=== PATIENT | male | born 1950 | race Caucasian/White ===

== ENCOUNTER 2017-06-21 21:00 | Emergency (ER) | payer MEDICARE, OTHER ==
[~2017-06-21] VITALS: Ht 160 cm; Wt 79.4 kg
--- NOTE | 2017-06-21 21:10 | NUR ---
PT TO ER BED 14. PT BIBA#860 FROM HOME, PT C/O ABD PAIN X 3 DAYS, PT DENIES N/V/D. PT PLACED IN GOWN AND ON DISTRICT MANAGER POSTAL SERVICE. VSS/RESP EVEN UNLABORED/NAD NOTED/SKIN WARM AND DRY/AFEBRILE/AOX4. AWAITING MD MERINO.
--- NOTE | 2017-06-21 21:25 | NUR ---
PT TO CT VIA WC.
--- NOTE | 2017-06-21 21:25 | NUR ---
URINE SPECIMEN OBTAINED AND SENT TO THE LAB.
--- NOTE | 2017-06-21 21:30 | NUR ---
PT BACK FROM CT.
--- NOTE | 2017-06-21 21:33 | NUR ---
LAB AT BEDSIDE FOR DRAW.
[2017-06-21 21:44] LABS: BASOPHILS # (AUTO) 0.3 /CMM (0.0-0.2); BASOPHILS % (AUTO) 2.7 % (0.0-2.0); EOSINOPHILS % (AUTO) 1.1 % (0.0-6.0); HEMATOCRIT 44 % (39-51); LYMPHOCYTES # (AUTO) 2.1 /CMM (0.8-4.8); LYMPHOCYTES % (AUTO) 21.2 % (20.0-44.0); MEAN CORPUSCULAR HGB CONC 32 g/dl (31.0-36.0); MEAN CORPUSCULAR VOLUME 78 fL (80-96); MONOCYTES # (AUTO) 0.5 /CMM (0.1-1.30); MONOCYTES % (AUTO) 5.1 % (2.0-12.0); NEUTROPHILS # (AUTO) 7.1 /CMM (1.8-8.9); NEUTROPHILS % (AUTO) 69.9 % (43.0-81.0); PLATELET COUNT (AUTO) 411 /CMM (150-450); RDW COEFFICIENT OF VARIATION 15.5 (11.5-15.0); RED BLOOD CELL COUNT(AUTO) 5.62 MIL/uL (4.5-6.0); WHITE BLOOD COUNT (AUTO) 10.1 K/uL (4.3-11.0)
[2017-06-21 21:54] LABS: CALCIUM, SERUM 9.6 mg/dL (8.5-10.1); CREATININE 1.2 mg/dL (0.6-1.3); POTASSIUM 4.1 mmol/L (3.5-5.1)
[2017-06-21 22:01] LABS: ALBUMIN 4.1 g/dL (3.4-5.0); BILIRUBIN,DIRECT 0.1 mg/dL (0.0-0.2); BILIRUBIN,TOTAL 0.5 mg/dL (0.2-1.0)
[2017-06-21 22:04] LABS: APPEARANCE,URINE CLEAR (CLEAR); BILIRUBIN,URINE NEGATIVE (NEGATIVE); BLOOD, URINE NEGATIVE Ery/uL (NEGATIVE); COLOR,URINE YELLOW (YELLOW); KETONES,URINE NEGATIVE (NEGATIVE); LEUKOCYTE ESTERASE ,URINE NEGATIVE (NEGATIVE); NITRITE, URINE NEGATIVE (NEGATIVE); PH,URINE 5.5 (5.0-8.0); PROTEIN,URINE NEGATIVE (NEGATIVE); UGLUCOSE NEGATIVE (NEGATIVE); UROBILINOGEN,URINE 0.2 EU/dL (0.2)
[2017-06-21] MEDS ORDERED: HYDROCODONE/APAP 5/325MG 1 EACH TABLET PO ONE (23:00)
[2017-06-21] MEDS ORDERED: HYDROCODONE/APAP 5/325MG 1 EACH TABLET ONE (23:04)
[2017-06-21 23:37] VITALS: BP 147/86
--- NOTE | 2017-06-21 23:37 | NUR ---
Patient discharged to home in stable condition. Written and verbal after care instructions given. Patient verbalizes understanding of instruction. PT TOLD TO NOT DRIVE, PT VERBALIZED UNDERSTANDNIGN AND PT STATES SHE WILL BE DRIVING HIM HOME.
== END 2017-06-21 23:39 | disposition home or self-care (01) ==
LOC: ER 21:03
DX: K45.8 Other specified abdominal hernia without obstruction or gangrene (principal); R10.84 Generalized abdominal pain
CPT/HCPCS: 36415; 80048-TC; 80076-TC; 81000-TC; 83690-TC; 85025-TC; A4606; Z7610

== ENCOUNTER 2017-07-22 19:37 | Inpatient (IN) | payer MEDICARE, OTHER ==
[~2017-07-22] VITALS: Ht 160 cm; Wt 77.6 kg
--- NOTE | 2017-07-22 19:40 | NUR ---
"ABD PAIN X5 DAYS; NOT URINATED IN 2 DAYS AND NO BOWEL MOVEMENT IN 4 DAYS" "HAD HERNIA SURGERY 06/22/17. NAD NOTED, VSS, RESP EVEN AND UNLABORED, PT WAS PUT ON MONITOR, WAITING FOR MD EVAL.
[2017-07-22 20:34] LABS: BASOPHILS # (AUTO) 0.2 /CMM (0.0-0.2); BASOPHILS % (AUTO) 1.6 % (0.0-2.0); EOSINOPHILS % (AUTO) 0.9 % (0.0-6.0); HEMATOCRIT 37 % (39-51); HEMOGLOBIN 12.4 g/dL (13.5-17.5); LYMPHOCYTES # (AUTO) 1.5 /CMM (0.8-4.8); LYMPHOCYTES % (AUTO) 13.6 % (20.0-44.0); MEAN CORPUSCULAR HGB CONC 33 g/dl (31.0-36.0); MEAN CORPUSCULAR VOLUME 75 fL (80-96); MONOCYTES # (AUTO) 0.5 /CMM (0.1-1.30); MONOCYTES % (AUTO) 4.6 % (2.0-12.0); NEUTROPHILS % (AUTO) 79.3 % (43.0-81.0); PLATELET COUNT (AUTO) 481 /CMM (150-450); RDW COEFFICIENT OF VARIATION 16.6 (11.5-15.0); RED BLOOD CELL COUNT(AUTO) 4.96 MIL/uL (4.5-6.0); WHITE BLOOD COUNT (AUTO) 11.3 K/uL (4.3-11.0)
--- NOTE | 2017-07-22 20:45 | NUR ---
pt to xray
[2017-07-22 20:58] LABS: CALCIUM, SERUM 9.6 mg/dL (8.5-10.1); CREATININE 1.9 mg/dL (0.6-1.3); POTASSIUM 3.8 mmol/L (3.5-5.1)
[2017-07-22 21:04] LABS: ALBUMIN 3.5 g/dL (3.4-5.0); BILIRUBIN,DIRECT 0.1 mg/dL (0.0-0.2); BILIRUBIN,TOTAL 0.3 mg/dL (0.2-1.0); TOTAL PROTEIN, SERUM 8.1 g/dL (6.4-8.2)
[2017-07-22] MEDS ORDERED: NA PHOS,M-B/NA PHOS,DI-BA 1 EA ENEMA RC ONE ×2 (23:14→23:30)
[2017-07-22] MEDS ORDERED: MAGNESIUM HYDROXIDE 30 ML UDC ONE (23:14)
[2017-07-22] MEDS ORDERED: MAGNESIUM CITRATE 296 ML BOTTLE ONE (23:14)
[2017-07-22] MEDS ORDERED: MAGNESIUM HYDROXIDE 30 ML UDC PO ONE (23:30)
[2017-07-22] MEDS ORDERED: MAGNESIUM CITRATE 296 ML BOTTLE PO ONE (23:30)
--- NOTE | 2017-07-22 23:30 | NUR ---
pt wants to hold off for farhan spangler, aware.
[2017-07-22] MEDS ORDERED: HYDROMORPHONE INJ 0.5 MG/0.5 ML SYRINGE ONE (23:38)
[2017-07-22] MEDS ORDERED: ONDANSETRON 4 MG TAB.RAPDIS ONE (23:38)
--- NOTE | 2017-07-22 23:58 | NUR ---
report given to charla cox rn
[2017-07-23] MEDS ORDERED: HYDROMORPHONE 1 MG/1 ML DISP.SYRIN IM ONE
[2017-07-23] MEDS ORDERED: ONDANSETRON 4 MG TAB.RAPDIS SL ONE
--- NOTE | 2017-07-23 04:21 | NUR ---
PT ASSIGNED TO MS 200
[2017-07-23] MEDS ORDERED: IV NS 0.9% 1,000 ML IV PRN (04:26)
[2017-07-23] MEDS ORDERED: MAGNESIUM HYDROXIDE 30 ML UDC PO PRN (04:30)
[2017-07-23] MEDS ORDERED: ACETAMINOPHEN 325 MG TABLET PO PRN (04:30)
[2017-07-23] MEDS ORDERED: ONDANSETRON HCL/PF 4 MG/2 ML VIAL IVP PRN (04:30)
[2017-07-23] MEDS ORDERED: MAG HYDROX/AL HYDROX/SIMETH 30 ML UDC PO PRN (04:30)
[2017-07-23] MEDS ORDERED: Z GUARD REMEDY 2 OZ OINT TP PRN (04:30)
[2017-07-23] MEDS ORDERED: ZOLPIDEM TARTRATE 5 MG TABLET PO PRN (04:30)
--- NOTE | 2017-07-23 05:03 | NUR ---
REPORT GIVEN TO ROOSEVELT GUERRIER FOR CONTINUATION OF CARE.
--- NOTE | 2017-07-23 05:06 | NUR ---
PT TRANSFERED TO [facility] [place] VIA WHEELCHAIR.
[2017-07-23 05:30] VITALS: BP 106/68
--- NOTE | 2017-07-23 06:00 | NUR ---
MS RN NOTE: RECEIVED PATIENT FROM ER, NO ACUTE DISTRESS NOTED. BREATHING EVEN AND UNLABORED, NO SOB NOTED. IV TO LAC IN PLACE, INFUSING NS AT 75 ML/HR. ORIENTED PATIENT TO ROOM AND USE OF CALL LIGHT. BED LOCKED AND IN LOWEST POSITION, CALL LIGHT IN REACH. WILL ENDORSE TO DAY NURSE TO CONTINUE WITH PLAN OF CARE.
[2017-07-23] MEDS: PANTOPRAZOLE 40 MG TABLET.DR PO SCH (07:12)
--- NOTE | 2017-07-23 07:31 | NUR ---
M/S RN - Assessment Patient in bed resting comfortably, A/O x 4, tolerating room air, denies abdominal discomfort at this time, still no bowel movement post MOM and magnesium citrate administration in ER. IVF NS at 75 ml/hr infusing well on the LAC with no infiltration. Patient ambulatory with steady gait. All needs attended and met. Will continue to monitor closely.
[2017-07-23 08:00] VITALS: BP 99/61
[2017-07-23] MEDS: DOCUSATE SODIUM 100 MG CAPSULE PO SCH ×2 (08:19→16:19)
[2017-07-23] MEDS: MORPHINE SULFATE INJ 4 MG/ML DISP.SYRIN IV PRN ×2 (09:26→13:37)
[2017-07-23 16:00] VITALS: BP 111/70
--- NOTE | 2017-07-23 16:00 | NUR ---
M/S RN - Notes Patient had a large bowel movement post tap water enema and manual disimpaction, he verbalized relief from abdominal discomfort. Abdomen soft, non-tender, +BS noted. Patient denies abdominal pain at this time.
--- NOTE | 2017-07-23 17:10 | NUR ---
M/S RN - Notes KALYAN Albrecht made aware that LAC peripheral IV was occluded and patient refused IVF and IV line to be re-inserted. Patient stated "I don't need it anymore, I've drinking lots of fluids." Per Ambrocio, adela not to insert peripheral IV, dc IVF and IV meds, advance diet as tolerated. Orders noted and carried out.
--- NOTE | 2017-07-23 18:15 | NUR ---
M/S RN - Notes Patient resting comfortably, tolerated full liquid diet, denies n/v, no c/o abdominal discomfort at this time, no apparent distress seen. Will continue with current medical management.
--- NOTE | 2017-07-23 19:30 | NUR ---
MS RN NOTES RECEIVED AMBULATING INSIDE HIS ROOM,VISITOR AT BEDSIDE,NO IV ACCESS,MD AWARE.DENIES PAIN.CALL LIGHT IN REACH,NEEDS ANTICIPATED.
[2017-07-23 20:00] VITALS: BP 134/84
[2017-07-23 22:00] VITALS: BP 134/84
[2017-07-23] MEDS: HYDROCODONE/APAP 5/325MG 1 EACH TABLET PO PRN (23:02)
--- NOTE | 2017-07-23 23:05 | NUR ---
MS RN NOTES C/O ABDOMINAL PAIN 6/10 ON PAIN SCALE,NORCO 5/325MG,1TAB PO GIVEN PER PATIENT REQUEST.
[2017-07-24] MEDS: HYDROCODONE/APAP 5/325MG 1 EACH TABLET PO PRN (02:59)
--- NOTE | 2017-07-24 02:59 | NUR ---
MS RN NOTES AMBULATE ON THE HALLWAY,C/O ABDOMINAL PAIN,NORCO 5/325MG.1 TAB PO GIVEN PER PATIENT REQUEST
--- NOTE | 2017-07-24 04:00 | NUR ---
MS RN NOTES SLEEPING AT THIS TIME
--- NOTE | 2017-07-24 06:01 | NUR ---
MS RN NOTES AWAKE,AMBULATES,PAIN TOLERABLE.NO IV ACCESS.TWICE SOFT BM,NON DIARRHEA.POSSIBLE D/C HOME TODAY WITH PRIVATE TRANSPORTATION.WILL ENDORSE TO DAY NURSE FOR DADA.
[2017-07-24 06:16] LABS: BASOPHILS % (AUTO) 0.5 % (0.0-2.0); EOSINOPHILS % (AUTO) 2.9 % (0.0-6.0); HEMATOCRIT 33 % (39-51); HEMOGLOBIN 11.1 g/dL (13.5-17.5); LYMPHOCYTES # (AUTO) 1.6 /CMM (0.8-4.8); LYMPHOCYTES % (AUTO) 18.1 % (20.0-44.0); MEAN CORPUSCULAR HGB CONC 33 g/dl (31.0-36.0); MEAN CORPUSCULAR VOLUME 76 fL (80-96); MONOCYTES # (AUTO) 0.4 /CMM (0.1-1.30); MONOCYTES % (AUTO) 4.8 % (2.0-12.0); NEUTROPHILS # (AUTO) 6.7 /CMM (1.8-8.9); NEUTROPHILS % (AUTO) 73.7 % (43.0-81.0); PLATELET COUNT (AUTO) 397 /CMM (150-450); RDW COEFFICIENT OF VARIATION 17.8 (11.5-15.0); RED BLOOD CELL COUNT(AUTO) 4.38 MIL/uL (4.5-6.0); WHITE BLOOD COUNT (AUTO) 9.1 K/uL (4.3-11.0)
[2017-07-24 06:44] LABS: CALCIUM, SERUM 9.3 mg/dL (8.5-10.1); CREATININE 1.1 mg/dL (0.6-1.3); MAGNESIUM 2.6 mg/dL (1.8-2.4); PHOSPHORUS 3.8 mg/dL (2.5-4.9); POTASSIUM 3.9 mmol/L (3.5-5.1)
--- NOTE | 2017-07-24 07:30 | NUR ---
PT RECEIVED RESTING COMFORTABLY IN BED. NO S/S OR C/O PAIN OR DISTRESS NOTED. SIDE RAILS UP X2, CALL LIGHT LEFT WITHIN REACH. WILL CONTINUE PLAN OF CARE.
[2017-07-24 07:56] VITALS: BP 125/68
[2017-07-24] MEDS: PANTOPRAZOLE 40 MG TABLET.DR PO SCH (07:57)
[2017-07-24] MEDS: DOCUSATE SODIUM 100 MG CAPSULE PO SCH (08:00)
--- NOTE | 2017-07-24 12:30 | NUR ---
DISCHARGE INSTRUCTIONS GIVEN ORDERED. ENCOURAGED TO FOLLOW UP WITH PMD INSTRUCTED. ALL QUESTIONS AND CONCERNS ADDRESSED. PATIENT VERBALIZED UNDERSTANDING. MEDICATION RECONCILIATION FORM COMPLETED, COPY GIVEN TO PATIENT. PATIENT TAKEN TO VEHICLE WITH ALL PERSONAL BELONGINGS, ACCOMPANIED BY STAFF. NO DISTRESS NOTED AT TIME OF DEPARTURE.
== END 2017-07-24 12:30 | disposition home or self-care (01) | DRG 391 ==
LOC: ER 19:39 → MEDSG2 07-23 04:25
PROVIDERS: ADMIT Internal Medicine; ATTEND Internal Medicine
DX: K59.00 Constipation, unspecified (principal); N17.0 Acute kidney failure with tubular necrosis; D72.829 Elevated white blood cell count, unspecified; D50.9 Iron deficiency anemia, unspecified; D63.8 Anemia in other chronic diseases classified elsewhere; Z95.1 Presence of aortocoronary bypass graft; I25.2 Old myocardial infarction
CPT/HCPCS: 36415; 74021; 80048-TC; 80076-TC; 83690-TC; 83735-TC; 84100-TC; 85025-TC; 87081-TC; A4606; J2270; J7030; Q0162; Z7610

== ENCOUNTER 2017-07-29 12:44 | Outpatient (CLI) | payer MEDICARE, OTHER ==
[2017-07-29] MEDS ORDERED: ZOLP5TAB8 PO (12:52)
[2017-07-29] MEDS ORDERED: METO25TA6 PO (12:52)
[2017-07-29] MEDS ORDERED: ACET-868 PO (12:52)
[2017-07-29] MEDS ORDERED: DOCU-141 PO (12:52)
[2017-07-29] MEDS ORDERED: NAPR-1192 PO (12:52)
[2017-07-29 12:54] VITALS: BP 104/74
== END 2017-07-29 23:59 | disposition home or self-care (01) ==
LOC: MSC 12:44
PROVIDERS: ATTEND Internal Medicine
DX: Z09 Encounter for follow-up examination after completed treatment for conditions other than malignant neoplasm (principal); D50.9 Iron deficiency anemia, unspecified; I25.2 Old myocardial infarction; F17.200 Nicotine dependence, unspecified, uncomplicated; Z95.1 Presence of aortocoronary bypass graft; Z98.890 Other specified postprocedural states

== ENCOUNTER 2018-11-01 12:14 | Inpatient (IN) | payer MEDICARE, OTHER ==
[~2018-11-01] VITALS: Ht 167.6 cm; Wt 83.7 kg
[~2018-11-01 12:14] MED LIST: ACET-868 PO; DOCU-141 PO; METO25TA6 PO; NAPR-1192 PO; ZOLP5TAB8 PO
--- NOTE | 2018-11-01 12:30 | NUR ---
AAOX3, came to ER c/o RLE pain, redness and swelling x 5 days. Pedal pulses +1. RR is even and unlabored with nad noted. skin is warm and dry. Awaiting md for eval. [facility] WNL.
--- NOTE | 2018-11-01 12:54 | NUR ---
Blood drawn sent to the lab.
[2018-11-01] MEDS ORDERED: PIPERACILLIN /TAZOBACTAM 3.375 G in IV D5W 50 ML IV ONE (13:00)
[2018-11-01 13:09] LABS: BASOPHILS # (AUTO) 0.1 /CMM (0.0-0.2); BASOPHILS % (AUTO) 0.8 % (0.0-2.0); EOSINOPHILS % (AUTO) 1.2 % (0.0-6.0); HEMATOCRIT 44 % (39-51); HEMOGLOBIN 14.2 g/dL (13.5-17.5); LYMPHOCYTES # (AUTO) 2.1 /CMM (0.8-4.8); LYMPHOCYTES % (AUTO) 29.3 % (20.0-44.0); MEAN CORPUSCULAR HGB CONC 32 g/dl (31.0-36.0); MEAN CORPUSCULAR VOLUME 81 fL (80-96); MONOCYTES # (AUTO) 0.6 /CMM (0.1-1.30); MONOCYTES % (AUTO) 7.8 % (2.0-12.0); NEUTROPHILS # (AUTO) 4.4 /CMM (1.8-8.9); NEUTROPHILS % (AUTO) 60.9 % (43.0-81.0); PLATELET COUNT (AUTO) 287 /CMM (150-450); RED BLOOD CELL COUNT(AUTO) 5.44 MIL/uL (4.5-6.0); WHITE BLOOD COUNT (AUTO) 7.3 K/uL (4.3-11.0)
--- NOTE | 2018-11-01 13:09 | NUR ---
CALLED HOUSE SUP FOR MS BED
--- NOTE | 2018-11-01 13:19 | NUR ---
MS BED 323-2
[2018-11-01 13:21] LABS: CALCIUM, SERUM 9.6 mg/dL (8.5-10.1); CREATININE 1.2 mg/dL (0.6-1.3); POTASSIUM 4.2 mmol/L (3.5-5.1)
[2018-11-01 13:25] LABS: ALBUMIN 3.5 g/dL (3.4-5.0); BILIRUBIN,DIRECT 0.1 mg/dL (0.0-0.2); BILIRUBIN,TOTAL 0.6 mg/dL (0.2-1.0); TOTAL PROTEIN, SERUM 7.4 g/dL (6.4-8.2)
[2018-11-01] MEDS: VANCOMYCIN 1 GM in IV D5W 250 ML IV ONE (13:30)
--- NOTE | 2018-11-01 14:19 | NUR ---
PATIENT AWAKE ALERT NON DISTRESS NOTED rT LEG REDNESS ,DENIES PAIN ,ELEVATED WITH PILLOW CONTINUE TO MONITOR
[2018-11-01] MEDS ORDERED: MORPHINE SULFATE INJ 2 MG/ML DISP.SYRIN IV PRN (14:30)
[2018-11-01] MEDS ORDERED: MAG HYDROX/AL HYDROX/SIMETH 30 ML UDC PO PRN (14:30)
[2018-11-01] MEDS ORDERED: ZOLPIDEM TARTRATE 5 MG TABLET PO PRN (14:30)
[2018-11-01] MEDS ORDERED: ACETAMINOPHEN 325 MG TABLET PO PRN (14:30)
[2018-11-01] MEDS ORDERED: ONDANSETRON HCL/PF 4 MG/2 ML VIAL IVP PRN (14:30)
[2018-11-01] MEDS ORDERED: HYDROCODONE/APAP 5/325MG 1 EACH TABLET PO PRN (14:30)
[2018-11-01] MEDS ORDERED: Z GUARD REMEDY 2 OZ OINT TP PRN (14:30)
[2018-11-01] MEDS ORDERED: FEE PK DOSING 1 MIN EA MC ONE (14:37)
--- NOTE | 2018-11-01 15:18 | NUR ---
PATIENT HAS MEL HESS NOTED NO REDNESS ,NO EDEMA ,NO PAIN REPORT GIVEN TO DENIS Camara
--- NOTE | 2018-11-01 15:24 | NUR ---
PATIENT HAS 2 + PITTING EDEMA TO HIS RT FOOT AND ANKLE PROVIDER AWARE ELEVATED WITH PILLOW CONTINUE TO MONITOR
[2018-11-01 15:50] VITALS: BP 123/80
--- NOTE | 2018-11-01 16:00 | NUR ---
FIRE MEDIC NOTES PATIENT ADMITTED FROM ER A/O X4, MED/SURG ON Dx OF RIGHT LOWER LEG CELLULITIS. PATIENT HAS NO ACUTE RESPIRATORY DISTRESS. LUNGS ARE CLEAR DURING AUSCULTATION, UNLABORED. V/S TAKEN BP -123/80, P-57, R-18, O2-99 ROOM AIR, T-97.5. SKIN ASSESSMENT DONE RIGHT LOWER LEG HAS REDNESS, SNELLEN, PAINFUL WHEN TOUCHING, AND IN THE MIDDLE HAS A BLOCK DISCOLORATION. PICTURE TAKEN. ELEVATED RIGHT LEG USING PILLOWS. PATIENT WAS COMPLAINING OF PAIN 3/10 BUT REFUSED PAIN MEDICATION AT THIS TIME, APPLIED ICE APPLICATOR ON GORDY OF THE RIGHT LEG. PATIENT USING CANE FOR SAFETY PRECAUTION, USING BATHROOM. IV ACCESS ON LEFT AC AREA INTACT, CALL LIGHT WITHIN TO REACH, CONTINUED MONITORING.
[2018-11-01] MEDS: LACTOBACILLUS RHAMNOSUS GG 1 EACH CAP.SPRINK PO SCH (16:23)
[2018-11-01] MEDS: PIPERACILLIN /TAZOBACTAM 3.375 G in IV D5W 50 ML IV SCH ×2 (17:31→23:27)
--- NOTE | 2018-11-01 17:50 | NUR ---
RN NOTES PATIENT STEP DOWN FOR SMOKE WITH THE BALANCE SHEET ANALYST USING WHEELCHAIR. CONTINUED MONITORING.
--- NOTE | 2018-11-01 18:10 | NUR ---
RN NOTES PATIENT BACK, EATING AT THIS TIME . STARTED ZOSYN 100 ML/HR ON LEFT AC AREA INTACT, ADMINISTERED SCHEDULED MEDICATION, PATIENT REFUSED PAIN AT THIS TIME, KEEP RIGHT LEG ELEVATED, CALL LIGHT WITHIN TO REACH. NEXT TO THE BED, ENDORSED ONCOMING NURSE FOLLOW PLAN OF CARE.
[2018-11-01 20:00] VITALS: BP 116/69
[2018-11-02] MEDS: VANCOMYCIN 1 GM in IV D5W 250 ML IV SCH ×2 (00:19→13:37)
[2018-11-02] MEDS: PIPERACILLIN /TAZOBACTAM 3.375 G in IV D5W 50 ML IV SCH ×4 (05:12→23:01)
[2018-11-02 06:26] LABS: BASOPHILS % (AUTO) 0.4 % (0.0-2.0); EOSINOPHILS % (AUTO) 2.4 % (0.0-6.0); HEMATOCRIT 41 % (39-51); HEMOGLOBIN 13.5 g/dL (13.5-17.5); LYMPHOCYTES # (AUTO) 1.1 /CMM (0.8-4.8); MEAN CORPUSCULAR HGB CONC 33 g/dl (31.0-36.0); MEAN CORPUSCULAR VOLUME 80 fL (80-96); MONOCYTES # (AUTO) 0.4 /CMM (0.1-1.30); MONOCYTES % (AUTO) 7.6 % (2.0-12.0); NEUTROPHILS # (AUTO) 4.2 /CMM (1.8-8.9); NEUTROPHILS % (AUTO) 70.6 % (43.0-81.0); PLATELET COUNT (AUTO) 255 /CMM (150-450); RED BLOOD CELL COUNT(AUTO) 5.18 MIL/uL (4.5-6.0); WHITE BLOOD COUNT (AUTO) 5.9 K/uL (4.3-11.0)
[2018-11-02 06:47] LABS: CALCIUM, SERUM 8.8 mg/dL (8.5-10.1); CREATININE 1.1 mg/dL (0.6-1.3); POTASSIUM 3.9 mmol/L (3.5-5.1)
[2018-11-02 07:51] VITALS: BP 152/91
[2018-11-02 08:00] VITALS: BP 124/73
--- NOTE | 2018-11-02 08:00 | NUR ---
RN NOTES RN NOTES RECEIVED PATIENT IN THE BED SLEEPING, NO ACUTE RESPIRATORY DISTRESS, V/S STABLE PATIENT AROUSE WHEN CALLED NAME OR TOUCHED. IV ACCESS ON LEFT AC AREA INTACT. PATIENT HAS A REDNESS AND SNELLEN RIGHT LEG, KEEPED ELEVATED USING PILLOW. CALL LIGHT WITHIN TO REACH, CONTINUED MONITORING.
--- NOTE | 2018-11-02 09:00 | NUR ---
RN NOTES PATIENT OUT TO SMOKE WITH SUPERVISION OF CLOTH EXAMINER HAND.
--- NOTE | 2018-11-02 09:20 | NUR ---
RN NOTES PATIENT BACK FROM SMOKING, ADMINISTERED SCHEDULED MEDICATION. ENCOURAGED TO KEEP ELEVATED RIGHT LEG.
[2018-11-02] MEDS: LACTOBACILLUS RHAMNOSUS GG 1 EACH CAP.SPRINK PO SCH ×2 (09:32→16:41)
--- NOTE | 2018-11-02 13:04 | NUR ---
RN NOTES PATIENT IN THE BED INFUSING ZOSYN 100 ML/HR ON LEFT AC INTACT, PATIENT REFUSED PAIN, FAMILY NEXT TO THE BED. CONTINUED MONITORING.
[2018-11-02 16:06] VITALS: BP 124/73
--- NOTE | 2018-11-02 18:30 | NUR ---
RN NOTES PATIENT STABLE , V/S WNL, INFUSING ZOSYN 100 ML/HR ON RIGHT FA INTACT. PATIENT REFUSED PAIN. ENCOURAGED TO KEEP RIGHT LEG ELEVATED, CALL LIGHT WITHIN TO REACH. PATIENT USING CANE. NEXT TO THE BED. ENDORSED ONCOMING NURSE FOLLOW PLAN OF CARE.
--- NOTE | 2018-11-02 19:25 | NUR ---
MS RN OPENING NOTES: RECEIVED PT ON ROOM AIR WITH AT BEDSIDE. PT IS SITTING UP IN CHAIR AT THIS TIME. PT HAS IV ON R FOREARM #22G AND IS PATENT AND INTACT. CURRENTLY H/L. PT IS A/OX4. NOTED SOME SWELLING AND REDNESS ON R LEG. PT ANTICIPATING TO GO HOME BUT EXPLAINED TO HIM THAT HE HAS NOT YET BEEN SEEN BY WOUND CONSULT. PT UNDERSTOOD. BED KEPT IN LOW, LOCKED POSITION, AND SIDE RAILS X 2UP. WILL CONTINUE TO MONITOR PT.
[2018-11-02 20:00] VITALS: BP_SYST 121; BP_SYST 130; BP_DIAS 76; BP_DIAS 78
--- NOTE | 2018-11-02 20:06 | NUR ---
MS RN NOTES: PT WENT DOWN FOR SMOKE BREAK WITH MEAGAN BALBUENA.
--- NOTE | 2018-11-02 20:24 | NUR ---
MS RN NOTES: PT BACK FROM SMOKE BREAK.
[2018-11-03] MEDS: VANCOMYCIN 1 GM in IV D5W 250 ML IV SCH (00:16)
[2018-11-03] MEDS: PIPERACILLIN /TAZOBACTAM 3.375 G in IV D5W 50 ML IV SCH (05:44)
--- NOTE | 2018-11-03 06:21 | NUR ---
MS RN CLOSING NOTES: ALL NEEDS WERE ATTENDED AND ANTICIPATED FOR. PT KEPT CLEAN, DRY, AND COMFORTABLE. NO SOB NOTED. NO S/S OF DISTRESS. PT AWAKE AND SITTING UP IN BED ON HIS PHONE AT THIS TIME. IV REMANS INTACT ON R FOREARM #22G AND IS BEING INFUSED WITH ZOSYN AT 100ML/HR AT THIS TIME. BED KEPT IN LOW, LOCKED POSITION, AND SIDE RAILS X 2UP. WILL ENDORSE TO AM NURSE FOR DADA.
[2018-11-03 07:27] LABS: CALCIUM, SERUM 8.9 mg/dL (8.5-10.1); CREATININE 1.3 mg/dL (0.6-1.3); POTASSIUM 4.3 mmol/L (3.5-5.1)
[2018-11-03 08:00] VITALS: BP 113/81
--- NOTE | 2018-11-03 08:00 | NUR ---
RN NOTES PATIENT IN THE ROOM SITTING IN THE CHAIR, REFUSED PAIN, RIGHT WOUND SWELLING GET LESS, PATIENT REFUSED PAIN. SEEN PATIENT BY KALYAN DAVIDSON, PLAN FOR DISCHARGE TODAY AFTERNOON AFTER WOUND CONSULTATION WITH PO ANTIBIOTIC. CALL LIGHT WITHIN TO REACH. CONTINUED MONITORING.
--- NOTE | 2018-11-03 08:43 | NUR ---
RN NOTES PATIENT OUT OF UNIT FOR SMOKE WITH SUPERVISION OF ELECTRONIC NEWS GATHERING EDITOR.
[2018-11-03] MEDS: LACTOBACILLUS RHAMNOSUS GG 1 EACH CAP.SPRINK PO SCH (09:09)
--- NOTE | 2018-11-03 09:10 | NUR ---
RN NOTES PATIENT BACK FROM SMOKING, ADMINISTERED SCHEDULED MEDICATION, SEEN WOUND NURSE.
--- NOTE | 2018-11-03 09:18 | NUR ---
WOUND CARE CONSULT: PT PRESENTS WITH RAISED AREA TO RT ANTERIOR LOWER LEG WITH ESCHAR/WOUND, PRESENT ON ADMISSION. RECOMMEND DPM CONSULT. DR LUCAS AWARE OF CONSULT REQUEST. PT IS AMBULATORY AND CONTINENT. WILL SEE PRN. Addendum: 11/03/18 at 0919 by RYAN RATLIFF WNDNU Amended: Links added.
--- NOTE | 2018-11-03 10:29 | NUR ---
WOUND CARE: PT REFUSED TO WAIT FOR DPM CONSULT. PT STATES WANTS TO GO HOME NOW. PT GIVEN WOUND CLINIC INFO AND PHONE NUMBER TO CALL FOR APPT [phone]. DISCUSSED WITH PRISON OFFICER AND PT'S RN. DR LUCAS NOTIFIED. NO DRAINAGE NOTED AT THIS TIME FROM RT LOWER LEG. PT IS AMBULATORY.
--- NOTE | 2018-11-03 11:32 | NUR ---
RN NOTES PATIENT GOING TO D/C HOME WILL FOLLOW OUTPATIENT WOUND WITH DR GARCIA ON Friday11/05/18. 0800 AM.
--- NOTE | 2018-11-03 12:03 | NUR ---
BERRY PICKER MACHINE OPERATOR NOTES PATIENT DISCHARGE AT [facility] TIME GOING HOME WILL FOLLOW WOUND MD GARCIA OUTPATIENT ON 11/05/09 0800 AM WITH APPOINTMENT. PATIENT STABLE V/ S WNL, REFUSED PAIN, MED COMPLIANT. MED RECONCILIATION AND DISCHARGE ORDER REVIEWED AND EXPLAINED TO PATIENT, TAKE HOME MEDICATION. PICTURE TAKEN COVERED WOUND WITH MEPILEX, AND NETS. ESCORTED PATIENT TO THE LOBBY FOR SAFETY. PATIENT CAR REPAIR SUPERVISOR BY DAUGHTER IN LOW PHONE #- [phone].
== END 2018-11-03 12:00 | disposition home or self-care (01) | DRG 603 ==
LOC: ER 12:14 → MED 13:39
PROVIDERS: ADMIT Nurse Practitioner Acute Care; ATTEND Nurse Practitioner Acute Care
DX: L03.115 Cellulitis of right lower limb (principal); F17.210 Nicotine dependence, cigarettes, uncomplicated; L02.415 Cutaneous abscess of right lower limb; I25.10 Atherosclerotic heart disease of native coronary artery without angina pectoris; I10 Essential (primary) hypertension; Z95.1 Presence of aortocoronary bypass graft
CPT/HCPCS: 36415; 73590-TC; 80048-TC; 80076-TC; 83605-TC; 85025-TC; 85730-TC; 87040-TC; 87081-TC; 93971-TC; G0378; J2543; J3370; J7050; J7060

== ENCOUNTER 2018-11-05 08:15 | Outpatient (CLI) | payer MEDICARE, OTHER ==
[~2018-11-05 08:15] MED LIST changes: -ACET-868 PO; -DOCU-141 PO; -NAPR-1192 PO; -ZOLP5TAB8 PO
[2018-11-10] MEDS ORDERED: AMOX-430 PO (13:04)
[2018-11-10] MEDS ORDERED: LACT1CAP72 PO (13:04)
== END 2018-11-05 23:59 | disposition home or self-care (01) ==
LOC: WOU 08:15
PROVIDERS: ATTEND Podiatrist Foot & Ankle Surgery
DX: S81.811A Laceration without foreign body, right lower leg, initial encounter (principal); V49.88XA Car occupant (driver) (passenger) injured in other specified transport accidents, initial encounter; Y92.89 Other specified places as the place of occurrence of the external cause; F17.210 Nicotine dependence, cigarettes, uncomplicated; L03.115 Cellulitis of right lower limb; M79.661 Pain in right lower leg
CPT/HCPCS: 11043; 87070; A6407; J3490; 87186-TC

== ENCOUNTER 2018-11-09 08:30 | Outpatient (CLI) | payer MEDICARE, OTHER ==
[2018-11-09] MEDS ORDERED: SULF1TAB48 PO (09:39)
[2018-11-09] MEDS ORDERED: CEPH-570 PO (09:39)
[2018-11-10] MEDS ORDERED: AMOX-430 PO (13:04)
[2018-11-10] MEDS ORDERED: LACT1CAP72 PO (13:04)
== END 2018-11-09 23:59 | disposition home or self-care (01) ==
LOC: WOU 08:30
PROVIDERS: ATTEND Podiatrist Foot & Ankle Surgery
DX: S81.811D Laceration without foreign body, right lower leg, subsequent encounter (principal); L03.115 Cellulitis of right lower limb; M79.661 Pain in right lower leg; F17.210 Nicotine dependence, cigarettes, uncomplicated; W22.8XXD Striking against or struck by other objects, subsequent encounter
CPT/HCPCS: G0463; J3490

== ENCOUNTER 2018-11-09 09:19 | Inpatient (IN) | payer MEDICARE, OTHER ==
[2018-11-09] VITALS (10 sets, daily range): BP systolic 106–135; BP diastolic 60–78
[~2018-11-09] VITALS: Ht 167.6 cm; Wt 83.9 kg
--- NOTE | 2018-11-09 09:30 | NUR ---
BIB SELF 68 YEAR MALE sent by [facility] for preop evaluation for debridement of RLE wound. ALERT AND ORIENTED X4, BREATHING EVEN AND UNLABORED WITH NO DISTRESS NOTED. SKIN WARM TO TOCYCH AND INTACT. NOTED WITH RIGHT LOWER LEG DRESSING FOR WOUND DEBRIDEMENT
[2018-11-09] MEDS ORDERED: CEPH-570 PO (09:39)
[2018-11-09] MEDS ORDERED: SULF1TAB48 PO (09:39)
[2018-11-09 09:47] LABS: BASOPHILS # (AUTO) 0.1 /CMM (0.0-0.2); BASOPHILS % (AUTO) 0.9 % (0.0-2.0); HEMATOCRIT 46 % (39-51); LYMPHOCYTES % (AUTO) 23.9 % (20.0-44.0); MEAN CORPUSCULAR HGB CONC 33 g/dl (31.0-36.0); MEAN CORPUSCULAR VOLUME 81 fL (80-96); MONOCYTES # (AUTO) 0.4 /CMM (0.1-1.30); MONOCYTES % (AUTO) 5.5 % (2.0-12.0); NEUTROPHILS # (AUTO) 5.6 /CMM (1.8-8.9); NEUTROPHILS % (AUTO) 68.7 % (43.0-81.0); PLATELET COUNT (AUTO) 296 /CMM (150-450); RED BLOOD CELL COUNT(AUTO) 5.65 MIL/uL (4.5-6.0); WHITE BLOOD COUNT (AUTO) 8.2 K/uL (4.3-11.0)
--- NOTE | 2018-11-09 09:52 | NUR ---
NURSING SUP GAVE BED 324-2. NURSE NAME IS DANETTE.
[2018-11-09 09:53] LABS: CALCIUM, SERUM 9.4 mg/dL (8.5-10.1); CREATININE 1.2 mg/dL (0.6-1.3); POTASSIUM 5.7 mmol/L (3.5-5.1)
[2018-11-09 09:59] LABS: BILIRUBIN,DIRECT 0.1 mg/dL (0.0-0.2); BILIRUBIN,TOTAL 0.5 mg/dL (0.2-1.0); TOTAL PROTEIN, SERUM 8.2 g/dL (6.4-8.2)
--- NOTE | 2018-11-09 10:09 | NUR ---
REPORT GIVEN TO OMAR GUERRIER TO CONTINUE DADA
--- NOTE | 2018-11-09 10:30 | NUR ---
MS TOOL KEEPER NOTES RECEIVE PATIENT VIA WHEELCHAIR ACCOMPANIED BY ER STAFF; CHEERFUL, ALERT AND ORIENTED X 4. VERBALLY RESPONSIVE AND ABLE TO FOLLOW DIRECTIONS. BREATHING REGULAR AND UNLABORED ON ROOM AIR. AMBULATORY USES CANE WITH MINIMAL WEAKNESS ON RIGHT LEG, PER PATIENT ITS BECAUSE OF THE RIGHT LOWER LEG WOUND PAIN. BUT DIDNT COMPLAIN OF PAIN/DISCOMFORT OF THE TIME. MAINTAINED NOTHING BY MOUTH FOR SURGERY LATER FOR RLE WOUND DEBRIDEMENT AND INCISION. CONSENTS WERE SIGNED, CHECKLIST DONE PLACED ON THE CHART. BODY ASSESSMENT DONE, PICTURE ATTACHED ON THE CHART. LEFT AC G20 IV SALINE LOCK INTACT AND PATENT, FLUSHES WELL. WOUND DRESSING INTACT, DRY AND CLEAN. NEEDS ATTENDED. CONTINUOUSLY MONITORED
[2018-11-09] MEDS ORDERED: IV D5/0.45 NACL 1,000 ML IV PRN (10:36)
[2018-11-09] MEDS ORDERED: FEE PK DOSING 1 MIN EA MC ONE (10:45)
[2018-11-09] MEDS ORDERED: VANCOMYCIN HCL 1.25 GM in IV D5W 250 ML IV SCH (11:00)
[2018-11-09] MEDS ORDERED: MAGNESIUM HYDROXIDE 30 ML UDC PO PRN (11:00)
[2018-11-09] MEDS ORDERED: ZOLPIDEM TARTRATE 5 MG TABLET PO PRN (11:00)
[2018-11-09] MEDS ORDERED: MAG HYDROX/AL HYDROX/SIMETH 30 ML UDC PO PRN (11:00)
[2018-11-09] MEDS ORDERED: ONDANSETRON HCL/PF 4 MG/2 ML VIAL IVP PRN (11:00)
[2018-11-09] MEDS ORDERED: MORPHINE SULFATE INJ 2 MG/ML DISP.SYRIN IV PRN (11:00)
[2018-11-09] MEDS ORDERED: Z GUARD REMEDY 2 OZ OINT TP PRN (11:00)
[2018-11-09] MEDS ORDERED: METOPROLOL TARTRATE 25 MG TABLET PO PRN ×2 (11:00→12:00)
[2018-11-09] MEDS ORDERED: ACETAMINOPHEN 325 MG TABLET PO PRN (11:00)
[2018-11-09] MEDS ORDERED: HYDROCODONE/APAP 5/325MG 1 EACH TABLET PO PRN (11:00)
--- NOTE | 2018-11-09 11:59 | NUR ---
MS RN NOTES OR STAFF CALLED FOR LAST MEAL/FLUID INTAKE, TOLD THEM PER PATIENT HIS LAST MEAL WAS LAST NIGHT AND DRUNK 1CUP WATER AND 1/2 CUP COFFEE THIS MORNING AT AROUND 8AM WITH HIS PRESCRIBED ANTIBIOTIC
[2018-11-09] MEDS: VANCOMYCIN 1 GM in IV D5W 250 ML IV SCH ×2 (12:18→23:47)
--- NOTE | 2018-11-09 12:35 | NUR ---
MS RN NOTES PICKED-UP BY OR STAFF ALERT AND ORIENTED X 4 LYING ON HIS BED. LEFT AC G20 INFUSING WELL WITH D5 1/2 NS PRIMARY AND VANCOMYCIN ON SECONDARY LINE.
[2018-11-09] MEDS ORDERED: HYDROMORPHONE INJ 2 MG/ML DISP.SYRIN ONE (12:46)
[2018-11-09] MEDS ORDERED: ANESTHESIA TRAY IN PYXIS 1 EA TRAY MC ONE (12:47)
[2018-11-09] MEDS ORDERED: LIDOCAINE HCL/PF 1% 30 ML SDV ONE (12:48)
[2018-11-09] MEDS ORDERED: BUPIVACAINE MPF 0.5% W/EPI INJ 30 ML VIAL ONE (12:48)
[2018-11-09] MEDS ORDERED: BUPIVACAINE 0.5 % PF 150 MG/30 ML VIAL ONE (12:48)
[2018-11-09] MEDS ORDERED: CEFTRIAXONE 1 G in IV D5W 50 ML IV SCH (13:00)
[2018-11-09] MEDS ORDERED: NEOMY SULF/BACITRAC ZN/POLY 15 GM TUBE TP ONE (13:30)
--- NOTE | 2018-11-09 14:45 | NUR ---
MS RN NOTES RECEIVED PATIENT FROM OR S/P RIGHT LEG WOUND DEBRIDEMENT AND INCISION WITH DRESSING INTACT, CLEAN AND DRY, NO BLEEDING NOTED. PATIENT REMAINED ALERT AND ORIENTED X 4 WITH NO DISTRESS SEEN. NO COMPLAINTS OF PAIN/DISCOMFORT REPORTED. LEFT AC IV G20 INTACT AND INFUSING WELL. CONTINUOUSLY MONITORED.
[2018-11-09] MEDS: CEFTRIAXONE 1 G in IV D5W 50 ML IV SCH (16:05)
--- NOTE | 2018-11-09 18:35 | NUR ---
MS RN CLOSING NOTES PATIENT IN BED ALERT AND ORIENTED X 4, AMBULATORY AND VERBALLY RESPONSIVE. AFEBRILE WITH NO S/S OF DISTRESS OBSERVED. BREATHING REGULAR AND UNLABORED ON ROOM AIR. IV LINES ON LEFT AC G20 INFUSING WELL WITH NO S/S OF INFILTRATION/INFECTION NOTED. S/P RIGHT LOWER LEG WOUND DEBRIDEMENT AND INCISION WITH NO ACTIVE BLEEDING SEEN, DRESSING INTACT, CLEAN AND DRY. CARDIAC DIET TOLERATING WELL, ABLE TO EAT 100% OF MEAL. NO COMPLAINTS OF PAIN/DISCOMFORT OF THE TIME. WILL ENDORSE TO NOC SHIFT FOR CONTINUITY OF CARE.
--- NOTE | 2018-11-09 19:40 | NUR ---
RN MS OPENING NOTES RECEIVED PATIENT IN BED AWAKE, ALERT AND ORIENTED X4, VERBALLY RESPONSIVE, ABLE TO MAKE NEEDS KNOWN. BREATHING EVEN AND UNLABORED. NO SOB NOTED. TOLERATING ROOM AIR. NO COMPLAINTS OF PAIN OR DISCOMFORT. IV ON LEFT AC INTACT AND PATENT WITH IVF INFUSING. SKIN DRY AND WARM TO TOUCH. AFEBRILE. PATIENT IS S/P RIGHT LOWER LEG WOUND DEBRIDEMENT TODAY. DRESSINGS CLEAN DRY AND INTACT. ALL OTHER NEEDS ATTENDED TO. SAFETY MEASURES IN PLACE. CALL LIGHT WITHIN REACH. WILL CONTINUE TO MONITOR.
--- NOTE | 2018-11-09 20:10 | NUR ---
RN MS NOTES PATIENT WENT DOWN WITH MIDDLE SCHOOL TEACHER TO SMOKE. SMOKING FORM SIGNED BY PATIENT. PATIENT'S CIGARETTES AND NUTRITION AND DIETETICS INSTRUCTOR WERE COLLECTED AND PLACED IN NURSING STATION WITH PATIENT'S LABEL.
--- NOTE | 2018-11-10 01:47 | NUR ---
FAREED MATHEWS NOTES PATIENT'S IV LEAKING. INFORMED PATIENT THAT I NEED TO INSERT A NEW IV FOR HIS IVF AND IV ATB. PER PATIENT, HE WANTS IT "LATER ON", AND WOULD JUST LIKE TO SLEEP FOR NOW. WILL TRY AGAIN BEFORE AM DOSE OF ATB. Addendum: 11/10/18 at 06 by ERMELINDA ANG RN error: no am atb dose until day shift. Addendum: 11/10/18 at 618 by ERMELINDA ANG RN SREE PAIZ WITNESSED PATIENT'S REFUSAL.
--- NOTE | 2018-11-10 06:05 | NUR ---
RN MS NOTES PATIENT REFUSED TO HAVE IV INSERTION RIGHT NOW. PATIENT GOT MAD AND STATED THAT HE WAS WOKEN UP TOO MANY TIMES LAST NIGHT BUT THE LAST TIME HE WAS WOKEN UP WAS AROUND 0145 WHEN I TOOK OUT HIS IV DUE TO LEAKING. OFFERED TO DO IT AGAIN BUT PATIENT YELLED, "NO!" WILL ENDORSE TO ONCOMING NURSE. CHARGE NURSE MADE AWARE. Addendum: 11/10/18 at 0619 by ERMELINDA ANG RN SREE PAIZ WITNESSED PATIENT'S REFUSAL.
[2018-11-10 06:43] LABS: BASOPHILS % (AUTO) 0.2 % (0.0-2.0); HEMATOCRIT 42 % (39-51); LYMPHOCYTES # (AUTO) 1.6 /CMM (0.8-4.8); LYMPHOCYTES % (AUTO) 15.6 % (20.0-44.0); MEAN CORPUSCULAR HGB CONC 33 g/dl (31.0-36.0); MEAN CORPUSCULAR VOLUME 80 fL (80-96); MONOCYTES # (AUTO) 0.4 /CMM (0.1-1.30); MONOCYTES % (AUTO) 4.2 % (2.0-12.0); PLATELET COUNT (AUTO) 283 /CMM (150-450); RED BLOOD CELL COUNT(AUTO) 5.33 MIL/uL (4.5-6.0)
[2018-11-10 06:44] LABS: CALCIUM, SERUM 9.2 mg/dL (8.5-10.1); CREATININE 1.1 mg/dL (0.6-1.3); MAGNESIUM 2.1 mg/dL (1.8-2.4); POTASSIUM 4.8 mmol/L (3.5-5.1)
--- NOTE | 2018-11-10 06:55 | NUR ---
RN MS CLOSING NOTES PATIENT RESTING IN BED. NO ACUTE CHANGES THROUGHOUT SHIFT. BREATHING EVEN AND UNLABORED. NO SOB NOTED. TOLERATING ROOM AIR. NO COMPLAINTS OF PAIN OR DISCOMFORT. CURRENTLY WITH NO IV ACCESS DUE TO REFUSAL. DRESSINGS CLEAN DRY AND INTACT. ALL OTHER NEEDS ATTENDED TO. SAFETY MEASURES IN PLACE. CALL LIGHT WITHIN REACH. WILL ENDORSE TO ONCOMING NURSE FOR DADA.
[2018-11-10 08:00] VITALS: BP 130/78
--- NOTE | 2018-11-10 08:00 | NUR ---
RN MS AM NOTES RECEIVED PATIENT IN BED AWAKE, ALERT AND ORIENTED X4, VERBALLY RESPONSIVE, ABLE TO MAKE NEEDS KNOWN. BREATHING EVEN AND UNLABORED. NO SOB NOTED. TOLERATING ROOM AIR. NO COMPLAINTS OF PAIN OR DISCOMFORT. IV ON LEFT AC CHANGED TO LFA INTACT AND PATENT WITH IVF NS AT 75 ML/HR INFUSING WELL. SKIN DRY AND WARM TO TOUCH. AFEBRILE. PATIENT IS S/P RIGHT LOWER LEG WOUND DEBRIDEMENT AND INCISION 11/09/[address] LUCAS. DRESSINGS CLEAN DRY AND INTACT. SAFETY MEASURES IN PLACE. CALL LIGHT WITHIN REACH. WILL CONTINUE TO MONITOR.
[2018-11-10] MEDS: VANCOMYCIN 1 GM in IV D5W 250 ML IV SCH (11:37)
[2018-11-10] MEDS ORDERED: LACT1CAP72 PO (13:04)
[2018-11-10] MEDS ORDERED: AMOX-430 PO (13:04)
[2018-11-10] MEDS: CEFTRIAXONE 1 G in IV D5W 50 ML IV SCH (15:00)
--- NOTE | 2018-11-10 15:12 | NUR ---
DISCHARGED PT HOME WITH [facility] FOLLOW UP .INSTRUCTED PT TO FOLLOW UP WITH DR LUCAS (BUSINESS INFO CONSULTANT)IN ONE WEEK TO CHECK HIS RLE WOUND.PT WAS IN A [place] TO GO HOME,REFUSED WOUND PHOTO OF RLE WOUND AND IV ATB ROCEPHIN DUE AT 1500 INSPITE OF EXPLAINING THE RISKS AND BENEFITS. PT INSISTS TO REFUSE.IV H/L REMOVED IN PT'S LFA. DENIES ANY PAIN OR DISTRESS.CHECKED ALL BELONGINGS AND REFUSED TO HAVE HIS CREDIT CARDS AND MONEY IN HIS [place] BE CHECKED LISTED IN THE BELONGINGS LIST.PT SIGNED BELONGING LIST AND DISCHARGE PAPERS.
--- NOTE | 2018-11-10 15:12 | NUR ---
DISCHARGED PT HOME WITH HOME HEALTH ([facility])
[2018-11-10] MEDS ORDERED: LACTOBACILLUS RHAMNOSUS GG 1 EACH CAP.SPRINK PO SCH (17:00)
== END 2018-11-10 15:12 | disposition home health service (06) | DRG 571 ==
LOC: ER 09:19 → MED 09:57
PROVIDERS: ADMIT Internal Medicine; ATTEND Nurse Practitioner Acute Care
PROC: 0JBN0ZZ Excision of Right Lower Leg Subcutaneous Tissue and Fascia, Open Approach (ICD-10-PCS; principal; 2018-11-09)
DX: L03.115 Cellulitis of right lower limb (principal); L97.819 Non-pressure chronic ulcer of other part of right lower leg with unspecified severity; E87.1 Hypo-osmolality and hyponatremia; J98.11 Atelectasis; I25.10 Atherosclerotic heart disease of native coronary artery without angina pectoris; Z95.1 Presence of aortocoronary bypass graft; E78.5 Hyperlipidemia, unspecified; E86.1 Hypovolemia; E87.5 Hyperkalemia; F17.210 Nicotine dependence, cigarettes, uncomplicated; G62.9 Polyneuropathy, unspecified; I10 Essential (primary) hypertension; Z82.49 Family history of ischemic heart disease and other diseases of the circulatory system; S81.811A Laceration without foreign body, right lower leg, initial encounter; X58.XXXA Exposure to other specified factors, initial encounter; Y92.009 Unspecified place in unspecified non-institutional (private) residence as the place of occurrence of the external cause
CPT/HCPCS: 36415; 71045-TC; 80048-TC; 80076-TC; 80202-TC; 83735-TC; 84100-TC; 85025-TC; 85730-TC; 87070-TC; 87081-TC; G0378; J0696; J1100; J1170; J1200; J2405; J3370; J3490; J7030; J7050; J7060

== ENCOUNTER 2018-11-12 09:20 | Outpatient (CLI) | payer MEDICARE, OTHER ==
[~2018-11-12 09:20] MED LIST changes: +AMOX-430 PO; +LACT1CAP72 PO
== END 2018-11-12 23:59 | disposition home or self-care (01) ==
LOC: WOU 09:20
PROVIDERS: ATTEND Podiatrist Foot & Ankle Surgery
DX: I70.238 Atherosclerosis of native arteries of right leg with ulceration of other part of lower leg (principal); L97.819 Non-pressure chronic ulcer of other part of right lower leg with unspecified severity; L97.929 Non-pressure chronic ulcer of unspecified part of left lower leg with unspecified severity
CPT/HCPCS: 93925; A6452

== ENCOUNTER 2018-11-16 08:35 | Outpatient (CLI) | payer MEDICARE, OTHER | END 2018-11-16 23:59 | disposition home health service (06) | LOC: WOU 08:35 | PROVIDERS: ATTEND Podiatrist Foot & Ankle Surgery | DX: S81.811A Laceration without foreign body, right lower leg, initial encounter (principal); W22.8XXA Striking against or struck by other objects, initial encounter; Y92.89 Other specified places as the place of occurrence of the external cause; F17.210 Nicotine dependence, cigarettes, uncomplicated; M79.661 Pain in right lower leg; Z95.1 Presence of aortocoronary bypass graft | CPT/HCPCS: 11043; 97605-TC ==

== ENCOUNTER 2018-11-17 14:00 | Outpatient (CLI) | payer MEDICARE, OTHER | END 2018-11-17 23:59 | disposition home or self-care (01) | LOC: VASLAB 14:00 | PROVIDERS: ATTEND Surgery Vascular Surgery | DX: S81.811D Laceration without foreign body, right lower leg, subsequent encounter (principal); W22.8XXD Striking against or struck by other objects, subsequent encounter; I73.9 Peripheral vascular disease, unspecified; I25.10 Atherosclerotic heart disease of native coronary artery without angina pectoris; F17.200 Nicotine dependence, unspecified, uncomplicated; Z95.1 Presence of aortocoronary bypass graft; M79.661 Pain in right lower leg | CPT/HCPCS: G0463 ==

== ENCOUNTER 2018-11-19 09:00 | Outpatient (CLI) | payer MEDICARE, OTHER | END 2018-11-19 23:59 | disposition home health service (06) | LOC: WOU 09:00 | PROVIDERS: ATTEND Podiatrist Foot & Ankle Surgery | DX: S81.811A Laceration without foreign body, right lower leg, initial encounter (principal); W22.8XXA Striking against or struck by other objects, initial encounter; V49.9XXA Car occupant (driver) (passenger) injured in unspecified traffic accident, initial encounter; Y92.89 Other specified places as the place of occurrence of the external cause; I73.9 Peripheral vascular disease, unspecified; M79.661 Pain in right lower leg | CPT/HCPCS: 11043; 97605-TC ==

== ENCOUNTER 2018-11-26 08:34 | Outpatient (CLI) | payer MEDICARE, OTHER | END 2018-11-26 23:59 | disposition home or self-care (01) | LOC: WOU 08:34 | PROVIDERS: ATTEND Podiatrist Foot & Ankle Surgery | DX: S81.811A Laceration without foreign body, right lower leg, initial encounter (principal); W22.8XXA Striking against or struck by other objects, initial encounter; V49.9XXA Car occupant (driver) (passenger) injured in unspecified traffic accident, initial encounter; Y92.89 Other specified places as the place of occurrence of the external cause; I73.9 Peripheral vascular disease, unspecified; F17.210 Nicotine dependence, cigarettes, uncomplicated; M79.661 Pain in right lower leg | CPT/HCPCS: 11042; 97605-TC ==

== ENCOUNTER 2018-11-30 10:20 | Outpatient (CLI) | payer MEDICARE, OTHER | END 2018-11-30 23:59 | disposition home health service (06) | LOC: WOU 10:20 | PROVIDERS: ATTEND Podiatrist Foot & Ankle Surgery | DX: S81.811A Laceration without foreign body, right lower leg, initial encounter (principal); W22.09XA Striking against other stationary object, initial encounter; Y92.89 Other specified places as the place of occurrence of the external cause; M79.661 Pain in right lower leg; F17.200 Nicotine dependence, unspecified, uncomplicated | CPT/HCPCS: 15271; Q4196 ==

== ENCOUNTER 2018-12-10 10:35 | Outpatient (CLI) | payer MEDICARE, OTHER | END 2018-12-10 23:59 | disposition home health service (06) | LOC: WOU 10:35 | PROVIDERS: ATTEND Podiatrist Foot & Ankle Surgery | DX: S81.811A Laceration without foreign body, right lower leg, initial encounter (principal); W22.09XA Striking against other stationary object, initial encounter; Y92.89 Other specified places as the place of occurrence of the external cause; M79.661 Pain in right lower leg; F17.200 Nicotine dependence, unspecified, uncomplicated | CPT/HCPCS: 15271; Q4196 ==

== ENCOUNTER 2018-12-15 17:12 | Emergency (ER) | payer MEDICARE, OTHER ==
[~2018-12-15] VITALS: Ht 172.7 cm; Wt 83.9 kg
--- NOTE | 2018-12-15 17:23 | NUR ---
PT BIBA RA 62 From home "Cp x couple of days NOT getting better" PT IS AAOX3, NOT IN RESPIRATORY DISTRESS, HOOKED TO MONITOR, KEPT RESTED AND COMFORTABLE, WILL CONTINUE TO MONITOR.
--- NOTE | 2018-12-15 17:26 | NUR ---
SEEN AND EXAMINED BY .
--- NOTE | 2018-12-15 17:40 | NUR ---
BLOOD DRAWN AND SENT TO LAB.
[2018-12-15 17:43] LABS: BASOPHILS # (AUTO) 0.1 /CMM (0.0-0.2); BASOPHILS % (AUTO) 0.9 % (0.0-2.0); EOSINOPHILS % (AUTO) 0.4 % (0.0-6.0); HEMATOCRIT 44 % (39-51); HEMOGLOBIN 14.5 g/dL (13.5-17.5); LYMPHOCYTES # (AUTO) 1.6 /CMM (0.8-4.8); MEAN CORPUSCULAR HGB CONC 33 g/dl (31.0-36.0); MEAN CORPUSCULAR VOLUME 81 fL (80-96); MONOCYTES # (AUTO) 0.4 /CMM (0.1-1.30); MONOCYTES % (AUTO) 4.6 % (2.0-12.0); NEUTROPHILS # (AUTO) 5.6 /CMM (1.8-8.9); NEUTROPHILS % (AUTO) 73.1 % (43.0-81.0); PLATELET COUNT (AUTO) 294 /CMM (150-450); RED BLOOD CELL COUNT(AUTO) 5.46 MIL/uL (4.5-6.0); WHITE BLOOD COUNT (AUTO) 7.6 K/uL (4.3-11.0)
--- NOTE | 2018-12-15 17:52 | NUR ---
RECRUITING SPECIALIST AT BEDSIDE FOR XRAY.
[2018-12-15 17:56] LABS: CALCIUM, SERUM 9.4 mg/dL (8.5-10.1); CARBON DIOXIDE 26 mmol/L (21-32); CHLORIDE 103 mmol/L (98-107); CREATININE 1.1 mg/dL (0.6-1.3); GLUCOSE 123 mg/dL (74-106); POTASSIUM 4.1 mmol/L (3.5-5.1); SODIUM SERUM 137 mmol/L (136-145); UREA NITROGEN, BLOOD 13 mg/dL (7-18)
[2018-12-15] MEDS ORDERED: ZOLP5TAB8 PO (18:03)
[2018-12-15] MEDS ORDERED: NAPR-1192 PO (18:03)
[2018-12-15] MEDS ORDERED: TRAZ-214 PO (18:03)
[2018-12-15] MEDS ORDERED: ASPI-1169 PO (18:03)
[2018-12-15] MEDS ORDERED: ROSU20TA2 PO (18:03)
[2018-12-15] MEDS ORDERED: ENAL5TAB PO (18:03)
[2018-12-15 18:04] LABS: B-TYPE NATRIURETIC PEPTIDE 444 PG/ML (0-125)
--- NOTE | 2018-12-15 19:05 | NUR ---
CALLED [employer] STOCK TRANSFER CLERK WAS PAGED.
--- NOTE | 2018-12-15 19:25 | NUR ---
REPORT GIVEN TO FAREED RODRIGUEZ FOR DADA.
[2018-12-15] MEDS ORDERED: ACETAMINOPHEN 325 MG TABLET PO PRN (19:30)
[2018-12-15] MEDS ORDERED: ONDANSETRON HCL/PF 4 MG/2 ML VIAL IVP PRN (19:30)
[2018-12-15] MEDS ORDERED: MAG HYDROX/AL HYDROX/SIMETH 30 ML UDC PO PRN (19:30)
[2018-12-15] MEDS ORDERED: HYDROCODONE/APAP 5/325MG 1 EACH TABLET PO PRN (19:30)
[2018-12-15] MEDS ORDERED: Z GUARD REMEDY 2 OZ OINT TP PRN (19:30)
--- NOTE | 2018-12-15 20:06 | NUR ---
TELE 314-2
[2018-12-15 20:25] VITALS: BP 127/69
--- NOTE | 2018-12-15 20:57 | NUR ---
REPORT GIVEN TO FAREED NAZARIO FOR DADA
--- NOTE | 2018-12-15 21:08 | NUR ---
Patient does not wish to proceed with medical care recommended by Dr. GUTIERREZ. Patient given information related to possible complications, up to and including , which could occur as a result of leaving the hospital at this time. Patient verbalizes understanding of risks involved due to leaving against medical advice. Patient has signed AMA form.
[2018-12-15] MEDS ORDERED: ATORVASTATIN 40 MG TABLET PO SCH (22:00)
[2018-12-16] MEDS ORDERED: ASPIRIN 81 MG TAB.CHEW PO SCH (09:00)
== END 2018-12-15 21:13 | disposition home or self-care (01) ==
LOC: ER 17:16 → UNDOADMIN 20:32 → TELE 20:32
DX: I25.10 Atherosclerotic heart disease of native coronary artery without angina pectoris (principal); R07.89 Other chest pain; F10.10 Alcohol abuse, uncomplicated; F17.200 Nicotine dependence, unspecified, uncomplicated; Y90.9 Presence of alcohol in blood, level not specified; Z95.1 Presence of aortocoronary bypass graft; Z98.890 Other specified postprocedural states; Z79.82 Long term (current) use of aspirin
CPT/HCPCS: 36415; 71045-TC; 80048-TC; 83880; 84484-TC; 85025-TC; 87081-TC

== ENCOUNTER 2018-12-17 13:00 | Outpatient (CLI) | payer MEDICARE, OTHER ==
[~2018-12-17 13:00] MED LIST changes: -AMOX-430 PO; +ASPI-1169 PO; +ENAL5TAB PO; -LACT1CAP72 PO; +NAPR-1192 PO; +ROSU20TA2 PO; +TRAZ-214 PO; +ZOLP5TAB8 PO
== END 2018-12-17 23:59 | disposition home health service (06) ==
LOC: WOU 13:00
PROVIDERS: ATTEND Podiatrist Foot & Ankle Surgery
DX: S81.811A Laceration without foreign body, right lower leg, initial encounter (principal); W22.8XXA Striking against or struck by other objects, initial encounter; Y92.89 Other specified places as the place of occurrence of the external cause; F17.210 Nicotine dependence, cigarettes, uncomplicated; M79.661 Pain in right lower leg
CPT/HCPCS: 11042

== ENCOUNTER 2018-12-24 10:15 | Outpatient (CLI) | payer MEDICARE, OTHER | END 2018-12-24 23:59 | disposition home health service (06) | LOC: WOU 10:15 | PROVIDERS: ATTEND Podiatrist Foot & Ankle Surgery | DX: S81.811A Laceration without foreign body, right lower leg, initial encounter (principal); W22.8XXA Striking against or struck by other objects, initial encounter; Y92.89 Other specified places as the place of occurrence of the external cause; F17.210 Nicotine dependence, cigarettes, uncomplicated | CPT/HCPCS: 15271; Q4196 ==

== ENCOUNTER 2018-12-31 09:58 | Outpatient (CLI) | payer MEDICARE, OTHER | END 2018-12-31 23:59 | disposition home health service (06) | LOC: WOU 09:58 | PROVIDERS: ATTEND Podiatrist Foot & Ankle Surgery | DX: S81.811A Laceration without foreign body, right lower leg, initial encounter (principal); W22.8XXA Striking against or struck by other objects, initial encounter; Y92.89 Other specified places as the place of occurrence of the external cause; F17.210 Nicotine dependence, cigarettes, uncomplicated; M79.661 Pain in right lower leg | CPT/HCPCS: 15271; Q4196 ==

== ENCOUNTER 2019-01-07 10:20 | Outpatient (CLI) | payer MEDICARE, OTHER | END 2019-01-07 23:59 | disposition home health service (06) | LOC: WOU 10:20 | PROVIDERS: ATTEND Podiatrist Foot & Ankle Surgery | DX: S81.811A Laceration without foreign body, right lower leg, initial encounter (principal); W22.8XXA Striking against or struck by other objects, initial encounter; Y92.89 Other specified places as the place of occurrence of the external cause; F17.200 Nicotine dependence, unspecified, uncomplicated; L29.9 Pruritus, unspecified; M79.661 Pain in right lower leg | CPT/HCPCS: 11042 ==

== ENCOUNTER 2019-01-11 12:10 | Outpatient (CLI) | payer MEDICARE, OTHER | END 2019-01-11 23:59 | disposition home health service (06) | LOC: WOU 12:10 | PROVIDERS: ATTEND Podiatrist Foot & Ankle Surgery | DX: S81.811D Laceration without foreign body, right lower leg, subsequent encounter (principal); W22.09XD Striking against other stationary object, subsequent encounter; F17.200 Nicotine dependence, unspecified, uncomplicated | CPT/HCPCS: G0463 ==

== ENCOUNTER 2019-01-25 13:30 | Outpatient (CLI) | payer MEDICARE, OTHER | END 2019-01-25 23:59 | disposition home or self-care (01) | LOC: WOU 13:30 | PROVIDERS: ATTEND Podiatrist Foot & Ankle Surgery | DX: S81.811D Laceration without foreign body, right lower leg, subsequent encounter (principal); W22.09XD Striking against other stationary object, subsequent encounter; F17.210 Nicotine dependence, cigarettes, uncomplicated | CPT/HCPCS: G0463 ==

== ENCOUNTER 2019-02-04 10:45 | Outpatient (CLI) | payer MEDICARE, OTHER ==
[~2019-02-04 10:45] MED LIST changes: -TRAZ-214 PO; +TRAZ-257 PO
== END 2019-02-04 23:59 | disposition home or self-care (01) ==
LOC: WOU 10:45
PROVIDERS: ATTEND Podiatrist Foot & Ankle Surgery
DX: Z09 Encounter for follow-up examination after completed treatment for conditions other than malignant neoplasm (principal); F17.210 Nicotine dependence, cigarettes, uncomplicated
CPT/HCPCS: G0463

== ENCOUNTER 2019-06-24 11:45 | Outpatient (CLI) | payer MEDICARE, OTHER | END 2019-06-24 23:59 | disposition home or self-care (01) | LOC: WOU 11:45 | PROVIDERS: ATTEND Podiatrist Foot & Ankle Surgery | DX: R23.4 Changes in skin texture (principal); F17.210 Nicotine dependence, cigarettes, uncomplicated | CPT/HCPCS: G0463 ==

== ENCOUNTER 2020-12-21 11:25 | Outpatient (CLI) | payer MEDICARE, OTHER ==
[~2020-12-21 11:25] MED LIST changes: +ENAL-78 PO; -ENAL5TAB PO
== END 2020-12-21 23:59 | disposition home or self-care (01) ==
LOC: WOU 11:25
PROVIDERS: ATTEND Podiatrist Foot & Ankle Surgery
DX: S81.811D Laceration without foreign body, right lower leg, subsequent encounter (principal); X58.XXXD Exposure to other specified factors, subsequent encounter; F17.200 Nicotine dependence, unspecified, uncomplicated
CPT/HCPCS: A6209; G0463

== ENCOUNTER 2021-01-05 12:18 | Outpatient (CLI) | payer MEDICARE, OTHER | END 2021-01-05 23:59 | disposition home or self-care (01) | LOC: LAB 12:18 | PROVIDERS: ATTEND Specialist | DX: Z01.812 Encounter for preprocedural laboratory examination (principal); Z20.822 Contact with and (suspected) exposure to COVID-19 | CPT/HCPCS: C9803; U0003 ==